=== PATIENT | female | born 2000 | race Caucasian/White ===

== ENCOUNTER 2021-12-09 22:57 | Inpatient (IN) ==
[2021-12-10] MEDS ORDERED: hydrOXYzine pamoate 25 MG CAPSULE PO PRN (02:32)
[2021-12-10] MEDS ORDERED: *HR* LORazepam 2 MG/ML VIAL IM PRN (02:32)
[2021-12-10] MEDS ORDERED: traZODone 50 MG TABLET PO PRN (02:32)
[2021-12-10] MEDS ORDERED: *HR* LORazepam 1 MG TABLET PO PRN (02:32)
[2021-12-10] MEDS ORDERED: Haloperidol Lactate 5 MG/ML VIAL IM PRN (02:32)
[2021-12-10] MEDS ORDERED: haloperidoL 5 MG TABLET PO PRN (02:32)
[2021-12-10] MEDS: Ondansetron ODT 4 MG TAB.RAPDIS SL PRN ×3 (10:24→20:38)
[2021-12-10] MEDS ORDERED: Mag Hydrox/Al Hydrox/Simeth 30 ML UDC PO PRN (11:07)
[2021-12-10] MEDS ORDERED: MOM Conc 10 ML UD.LIQ PO PRN (11:07)
[2021-12-10] MEDS ORDERED: Acetaminophen 325 MG TABLET PO PRN (13:09)
[2021-12-10] MEDS ORDERED: Melatonin 3 MG TABLET PO PRN (13:10)
[2021-12-10 21:16] VITALS: O2SAT 96
[2021-12-11 08:36] VITALS: BP 130/86; PULSE 75; TEMP 98.8
== END 2021-12-11 12:35 | disposition home or self-care (01) | DRG 885 ==
LOC: EMEROOARM 22:57 → 1ANU 12-10 02:39
PROVIDERS: ADMIT Psychiatry & Neurology Psychiatry; ATTEND Psychiatry & Neurology Psychiatry